=== PATIENT | female | born 1980 | race Two or more races ===

== ENCOUNTER 2023-12-10 09:07 | Emergency (ER) | payer OTHER ==
[2023-12-10 09:49] LABS: BASOPHILS # (AUTO) 0.1 10^3/uL (0.0-0.1); BASOPHILS % (AUTO) 0.8 %; EOSINOPHILS # (AUTO) 0.1 10^3/uL (0.0-0.7); EOSINOPHILS % (AUTO) 1.1 %; HCT - HEMATOCRIT 40.6 % (37.0-47.0); HGB - HEMOGLOBIN 14.6 g/dL (12.0-16.0); LYMPHOCYTES # (AUTO) 1.7 10^3/uL (1.5-3.5); LYMPHOCYTES % (AUTO) 13.2 %; MEAN CORPUSCULAR HEMOGLOBIN 32.3 pg (27.0-31.0); MEAN CORPUSCULAR VOLUME 89.8 fL (81.0-99.0); MONOCYTES % (AUTO) 8.2 %; NEUTROPHILS # (AUTO) 9.7 10^3/uL (1.5-6.6); NEUTROPHILS % (AUTO) 76.4 %; PLT - PLATELET COUNT 298 10^3/uL (130-450); RED BLOOD COUNT 4.52 10^6/uL (4.20-5.40); WHITE BLOOD COUNT 12.6 x10^3/uL (4.8-10.8)
[2023-12-10 09:56] LABS: HCG UR QUAL NEGATIVE
[2023-12-10 09:57] LABS: BILIRUBIN,URINE NEGATIVE (NEGATIVE); GLUCOSE, URINE (UA) NEGATIVE (NEGATIVE); KETONES,URINE (UA) NEGATIVE (NEGATIVE); LEUKOCYTE ESTERASE, URINE NEGATIVE (NEGATIVE); NITRITE,URINE NEGATIVE (NEGATIVE); OCCULT BLOOD,URINE NEGATIVE (NEGATIVE); PH,URINE 7.5 PH (5.0-7.5); PROTEIN,URINE NEGATIVE (NEGATIVE); UROBILINOGEN,URINE 0.2 (NORMAL) E.U./dL (NORMAL)
[2023-12-10 10:00] LABS: CLARITY,URINE CLEAR (CLEAR)
[2023-12-10 10:05] LABS: ALBUMIN 4.6 g/dL (3.2-5.5); ALBUMIN/GLOBULIN RATIO 1.8 (1.0-2.2); ALKALINE PHOSPHATASE 71 IU/L (42-121); ALT ALANINE AMINOTRANSFERASE 14 IU/L (10-60); AST ASPARTATE AMINOTRANSFERASE 14 IU/L (10-42); BILIRUBIN,TOTAL 2.2 mg/dL (0.2-1.0); BUN - BLOOD UREA NITROGEN 14 mg/dL (6-20); CALCIUM 9.5 mg/dL (8.5-10.3); CARBON DIOXIDE - CO2 31 mmol/L (21-32); CHLORIDE 96 mmol/L (101-111); CREATININE 0.6 mg/dL (0.6-1.3); GFR - MDRD 109 (>89); GLUCOSE 101 mg/dL (74-104); POTASSIUM 3.2 mmol/L (3.5-4.5); SODIUM 133 mmol/L (135-145); TOTAL PROTEIN 7.2 g/dL (6.4-8.9)
[2023-12-10 10:18] LABS: LIPASE < 10 U/L (11-82)
--- NOTE | 2023-12-10 10:33 | ED Physician Documentation ---
PD HPI ABD PAIN - Stated complaint Stated Complaint: L THIGH PX - Chief complaint Chief Complaint: Abd Pain - History obtained from History obtained from: Patient - History of Present Illness Timing - onset: Yesterday Timing - duration: Days (2) Timing - details: Gradual onset, Still present Quality: Cramping, Aching, Pain Location: LLQ Radiation: Left flank Worsened by: Moving Associated symptoms: Nausea. No: Diarrhea, Constipation, Dysuria Similar symptoms before: Has not had sx before Review of Systems Constitutional: denies: Fever, Chills GI: reports: Nausea. 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: section, Breast implants - Present Medications Home Medications: Ambulatory Orders Medication Instructions Recorded Confirmed Amox/Clav 875/125 [Augmentin] 1 each PO BID #14 tablet 12/10/23 Cetirizine [ZyrTEC] 10 mg PO DAILY 12/10/23 12/10/23 Docusate Sodium 100Mg Capsule 100 mg PO DAILY #15 cap 12/10/23 [Colace 100Mg Capsule] Escitalopram [Lexapro] 10 mg PO DAILY 12/10/23 12/10/23 Fluticasone [Flonase] 1 sprays VINOD DAILY 12/10/23 12/10/23 Meloxicam [Mobic] 7.5 mg PO BID 10 Days #15 tablet 12/10/23 Topiramate [Topamax] 25 mg PO DAILY PM 12/10/23 12/10/23 Triamterene 20 mg PO DAILY 12/10/23 12/10/23 - Allergies Allergies/Adverse Reactions: Allergies Allergy/AdvReac Type Severity Reaction Status Date / Time No Known Drug Allergies Allergy Verified 12/10/23 09:23 - Social History Does the pt smoke?: No Smoking Status: Former smoker Does the pt drink ETOH?: Yes Does the pt have substance abuse?: No - Immunizations Immunizations are current?: Yes - POLST Patient has POLST: No PD ED PE NORMAL - Vitals Vital signs reviewed: Yes - General General: Alert and oriented X 3, Well developed/nourished, Other (appears in p ain due to abdomen) - Neck Neck: Supple, no meningeal sign, No adenopathy - Cardiac Cardiac: RRR, No murmur - Respiratory Respiratory: No respiratory distress, Clear bilaterally - Abdomen Abdomen: Normal bowel sounds, No organomegaly, Other (Tender left abomen withou local guarding and percussion tender but no referred nor rebound. ) - Female Female : Deferred - Rectal Rectal: Deferred - Back Back: No CVA TTP - Derm Derm: Normal color, Warm and dry - Neuro Neuro: Alert and oriented X 3, Normal speech Results - Vitals Vitals: Oxygen O2 Source Room air - Labs Labs: Laboratory Tests 12/10/23 12/10/23 12/10/23 09:35 09:35 09:44 WBC 12.6 H RBC 4.52 Hgb 14.6 Hct 40.6 MCV 89.8 MCH 32.3 H MCHC 36.0 RDW 12.0 Plt Count 298 MPV 9.0 Neut # (Auto) 9.7 H Lymph # (Auto) 1.7 [place] # (Auto) 1.0 Eos # (Auto) 0.1 Baso # (Auto) 0.1 Absolute Nucleated RBC 0.00 Nucleated RBC % 0.0 Sodium Potassium Chloride Carbon Dioxide Anion Gap BUN Creatinine Estimated GFR (MDRD) Glucose Calcium Total Bilirubin AST ALT Alkaline Phosphatase Total Protein Albumin Globulin Albumin/Globulin Ratio Lipase Urine Color LIGHT YELLOW Urine Clarity CLEAR Urine pH 7.5 Ur Specific [place] 1.010 Urine Protein NEGATIVE Urine Glucose (UA) NEGATIVE Urine Ketones NEGATIVE Urine Occult Blood NEGATIVE Urine Nitrite NEGATIVE Urine Bilirubin NEGATIVE Urine Urobilinogen 0.2 (NORMAL) Ur Leukocyte Esterase NEGATIVE Ur Microscopic Review NOT INDICATED Urine Culture Comments NOT INDICATED Urine HCG, Qual NEGATIVE 12/10/23 09:44 WBC RBC Hgb Hct MCV MCH MCHC RDW Plt Count MPV Neut # (Auto) Lymph # (Auto) [place] # (Auto) Eos # (Auto) Baso # (Auto) Absolute Nucleated RBC Nucleated RBC % Sodium 133 L Potassium 3.2 L Chloride 96 L Carbon Dioxide 31 Anion Gap 6.0 BUN 14 Creatinine 0.6 Estimated GFR (MDRD) 109 Glucose 101 Calcium 9.5 Total Bilirubin 2.2 H AST 14 ALT 14 Alkaline Phosphatase 71 Total Protein 7.2 Albumin 4.6 Globulin 2.6 Albumin/Globulin Ratio 1.8 Lipase < 10 L Urine Color Urine Clarity Urine pH Ur Specific [place] Urine Protein Urine Glucose (UA) Urine Ketones Urine Occult Blood Urine Nitrite Urine Bilirubin Urine Urobilinogen Ur Leukocyte Esterase Ur Microscopic Review Urine Culture Comments Urine HCG, Qual - Rads (name of study) abd/pelvic CT Relevant Findings:: Prelim report reviewed (ovarin cyst 2.3 cm on left. No free fluid. Area of wall inflammation in descending colon related to small di verticulum.), EMP independent interpretation of test Departure - Departure Disposition: Home, Self Care Clinical Impression: Left sided abdominal pain, Acute diverticulitis Condition: Stable Record reviewed to determine appropriate education?: Yes Instructions: ED Diverticulitis Follow-Up: EILEEN BAUER DO [Primary Care Provider] - Prescriptions: Amox/Clav 875/125 [Augmentin] 1 each PO BID #14 tablet Docusate Sodium 100Mg Capsule [Colace 100Mg Capsule] 100 mg PO DAILY #15 cap Meloxicam [Mobic] 7.5 mg PO BID 10 Days #15 tablet Comments: Your urine is clear without any signs of infection. Your CT scan showed an area of localized inflammation of the colon (colitis) around a diverticula. Your pain seems to be coming from a diverticulitis infection/inflammation. We typically would treat this with a combination of anti-inflammatory and antibiotic. I sent prescriptions to your preferred pharmacy. Additionally stay well-hydrated. Regular diet. You would want to not have firm stool rubbing against the sore area so a mild stool softener would be appropriate as well. Tylenol 500 to 650 mg 4 times daily if needed for pain. I would anticipate improvement in your pain over the next several days and resolution by 4 to 5 days. Recheck if not better in that timeframe and return if worsening. Forms: PCP List Discharge Date/Time: 12/10/23 13:58
[2023-12-10] MEDS: KETOROLAC 15 MG/ML VIAL IVP STA (11:06)
[2023-12-10] MEDS ORDERED: iohexoL-300 100 ML VIAL ONE (12:01)
[2023-12-10] MEDS: iohexoL-300 100 ML VIAL IVP ONE (13:04)
--- NOTE | 2023-12-10 13:11 | CT Report ---
PROCEDURE: Abdomen/Pelvis W INDICATIONS: left upper abd pain 3 days CONTRAST: Omni 300 100ml TECHNIQUE: After the administration of intravenous contrast, a CT scan of the abdomen and pelvis was performed. Images were recorded and evaluated at appropriate window settings. Reformats: coronal and sagittal. F or radiation dose reduction, the following was used: automated exposure control, adjustment of mA and /or kV according to patient size. COMPARISON: None. FINDINGS: Image quality: Diagnostic. Lower chest: Bilateral breast implants. Liver: No solid mass. Gallbladder: Dependent luminal stones. Biliary tree: No intrahepatic or extrahepatic dilation, accounting for age. Spleen: No splenomegaly. Pancreas: No pancreatic ductal dilation. Adrenals: No adrenal nodule. Kidneys and ureters: No hydronephrosis. No renal cystic lesion which requires follow up. No solid mas s. Stomach, bowel and peritoneum: There is a small focus of descending colon with small diverticula and inflammatory change along the left lateral abdominal wall. No pathologic free fluid. Lymph nodes: No central or retroperitoneal adenopathy. Vessels: No infrarenal aortic aneurysm. Patent portal vein. PELVIS Reproductive organs: Low-attenuation focus measuring 2.3 cm within the left ovary. Bladder: No abnormal wall thickening, accounting for underdistention. Pelvic lymph nodes: No pelvic adenopathy by size criteria. Bones: No aggressive osseous abnormality. Other: No significant ventral or inguinal hernia. IMPRESSION: Small focal loop of descending colon with inflammatory change appearing likely related to focal colit is. Left ovarian cyst measuring 2.3 cm. Reviewed by: Anabelle Esquivel MD on 12/10/2023 1:09 PM PDT Approved by: Anabelle Esquivel MD on 12/10/2023 1:09 PM PDT Station ID: [id number]
[2023-12-10] MEDS: AMOX/CLAV 875 MG/125 MG TABLET PO STA (13:47)
[2023-12-10] MEDS: DOCUSATE SODIUM 100 MG CAPSULE PO STA (13:47)
[2023-12-10 13:59] VITALS: BP 114/74; O2SAT 96
== END 2023-12-10 13:58 | disposition home or self-care (01) ==
LOC: SUPCPDRO 09:07 → ED 09:07
DX: K57.32 Diverticulitis of large intestine without perforation or abscess without bleeding (principal); N83.202 Unspecified ovarian cyst, left side; Z32.02 Encounter for pregnancy test, result negative; Z87.891 Personal history of nicotine dependence
CPT/HCPCS: 36415; 74177; 80053; 81003; 81025; 83690; 85025; 96374; 99284; A9270; Q9967; 81001; 87086